=== PATIENT | male | born 1975 | race Hispanic/Latino ===

== ENCOUNTER → 2023-07-10 | Emergency (ER) | payer OTHER ==
[~2023-07-10] MED LIST: ACETAMINOPHEN 500 MG TAB PO PRN; ASPIRIN 81 MG CHEWABLE TABLET ONE; ASPIRIN EC 81 MG TAB PO SCH; ENOXAPARIN 30 MG/0.3 ML SQ ONE; ENOXAPARIN 60 MG/0.6 ML SQ ONE; FAMOTIDINE 20 MG/2 ML VIAL IV ONE; PANTOPRAZOLE 40 MG INJ IVP SCH; SODIUM CHLORIDE 0.9% 10ML INJ IV PRN
--- OUTSIDE RECORDS SUMMARY | 2023-07-10 19:45 | XMS REPORT | Continuity of Care Document ---
Author Name Unknown Address [address] [place], [place] [address]onnect Address [address] [place] [id number] Care Team Providers Care Almond Paste Mixer Name Role Phone Unavailable Unavailable Unavailable
[2023-07-10 20:52] LABS: Absolute Lymphocytes (CBC) 2.4 K/uL (0.7-4.9); Hematocrit 42.4 % (39.6-49.0); Platelets 246 thou/uL (152-406); RBC Red Blood Cell Count 4.93 M/uL (4.33-5.43)
[2023-07-10 20:56] LABS: Protime INR 1.13
--- NOTE | 2023-07-10 20:58 | RAD REPORT ---
EXAM DESCRIPTION: CT - Head Brain Wo Cont - 07/10/2023 8:47 pm CLINICAL HISTORY: HEADACHE COMPARISON: No comparisons TECHNIQUE: All CT scans are performed using dose optimization technique as appropriate and may inclu de automated exposure control or mA/KV adjustment according to patient size. FINDINGS: No intracranial hemorrhage, hydrocephalus or extra-axial fluid collection.No areas of brai n edema or evidence of midline shift. Age advanced cerebral atrophy with prominence of the extra-axia l spaces, slightly asymmetric to the right. The paranasal sinuses and mastoids are clear. The calvarium is intact. IMPRESSION: No acute intracranial abnormality.
--- NOTE | 2023-07-10 20:58 | RAD REPORT ---
EXAM DESCRIPTION: RAD - Chest Single View - 07/10/2023 8:44 pm CLINICAL HISTORY: CHEST PAIN COMPARISON: No comparisons FINDINGS: Lines: None. Lungs: No evidence of edema or pneumonia. Pleural: No significant pleural effusions or pneumothorax. Cardiac: The heart size is within normal limits. Mediastinum: Within normal limits. Bones: No acute fractures. Other: None IMPRESSION: No acute cardiopulmonary disease.
--- NOTE | 2023-07-10 21:08 | EDPHYS ---
Physician Documentation [facility] Name: Delfino Keller Age: 48 yrs Sex: Male : 1975 Arrival Date: 07/10/2023 Time: 19:42 Bed 5 Private MD: ED Physician Tung Mercado HPI: 07/10 21:04 This 48 yrs old Male presents to ER via Ambulatory with complaints of Chest tash Pain. 21:04 The patient or guardian reports chest pain that is located primarily in the substernal tash area, anterior chest wall, left. Onset: 2 day(s) ago. The pain radiates to Associated signs and symptoms: The patient has no apparent associated signs or symptoms. The chest pain is described as causing indigestion, a pressure. Duration: The patient or guardian reports multiple episodes, with no pattern. Modifying factors: The symptoms are alleviated by nothing. the symptoms are aggravated by nothing. Severity of pain: At its worst the pain was moderate in the emergency department the pain has improved moderately. The patient has not experienced similar symptoms in the past. Historical: - Allergies: 19:55 No Known Allergies; jb4 - Home Meds: 19:55 None [Active]; jb4 - PMHx: 19:55 None; jb4 - PSHx: 19:55 None; jb4 - Immunization history:: Adult Immunizations up to date. - Social history:: Smoking status: Patient denies any tobacco usage or history of. - Family history:: not pertinent. ROS: 21:04 Constitutional: Negative for fever, chills, and weight loss, Eyes: Negative for injury, tash pain, redness, and discharge, ENT: Negative for injury, pain, and discharge, Neck: Negative for injury, pain, and swelling, Respiratory: Negative for shortness of breath, cough, wheezing, and pleuritic chest pain, Abdomen/GI: Negative for abdominal pain, nausea, vomiting, diarrhea, and constipation, Back: Negative for injury and pain, : Negative for injury, bleeding, discharge, and swelling, MS/Extremity: Negative for injury and deformity, Skin: Negative for injury, rash, and discoloration, Neuro: Negative for headache, weakness, numbness, tingling, and seizure, Psych: Negative for depression, anxiety, suicide ideation, homicidal ideation, and hallucinations, Allergy/Immunology: Negative for hives, rash, and allergies, Endocrine: Negative for neck swelling, polydipsia, polyuria, polyphagia, and marked weight changes, Hematologic/Lymphatic: Negative for swollen nodes, abnormal bleeding, and unusual bruising, 21:04 Cardiovascular: Positive for chest pain, Exam: 21:04 Constitutional: This is a well developed, well nourished patient who is awake, alert, tash and in no acute distress. Head/Face: Normocephalic, atraumatic. Eyes: Pupils equal round and reactive to light, extra-ocular motions intact. Lids and lashes normal. Conjunctiva and sclera are non-icteric and not injected. Cornea within normal limits. Periorbital areas with no swelling, redness, or edema. ENT: Nares patent. No nasal discharge, no septal abnormalities noted. Tympanic membranes are normal and external auditory canals are clear. Oropharynx with no redness, swelling, or masses, exudates, or evidence of obstruction, uvula midline. Mucous membranes moist. Neck: Trachea midline, no thyromegaly or masses palpated, and no cervical lymphadenopathy. Supple, full range of motion without nuchal rigidity, or vertebral point tenderness. No Meningismus. Chest/axilla: Normal chest wall appearance and motion. Nontender with no deformity. No lesions are appreciated. Cardiovascular: Regular rate and rhythm with a normal S1 and S2. No gallops, murmurs, or rubs. Normal PMI, no JVD. No pulse deficits. Respiratory: Lungs have equal breath sounds bilaterally, clear to auscultation and percussion. No rales, rhonchi or wheezes noted. No increased work of breathing, no retractions or nasal flaring. Abdomen/GI: Soft, non-tender, with normal bowel sounds. No distension or tympany. No guarding or rebound. No evidence of tenderness throughout. Back: No spinal tenderness. No costovertebral tenderness. Full range of motion. Male : Normal genitalia with no discharge or lesions. Skin: Warm, dry with normal turgor. Normal color with no rashes, no lesions, and no evidence of cellulitis. MS/ Extremity: Pulses equal, no cyanosis. Neurovascular intact. Full, normal range of motion. Neuro: Awake and alert, GCS 15, oriented to person, place, time, and situation. Cranial nerves II-XII grossly intact. Motor strength 5/5 in all extremities. Sensory grossly intact. Cerebellar exam normal. Normal gait. Psych: Awake, alert, with orientation to person, place and time. Behavior, mood, and affect are within normal limits. 21:04 ECG was reviewed by the Attending Physician. Vital Signs: 19:53 BP 121 / 65; Pulse 71; Resp 17 S; Temp 98(O); Pulse Ox 99% on R/A; Weight 92.99 kg; jb4 Height 5 ft. 5 in. ; Pain 3/10; 21:01 BP 111 / 89; Pulse 80; Resp 23; Pulse Ox 96% on R/A; Pain 5/10; tm6 22:00 BP 116 / 76; Pulse 68; Resp 20; Pulse Ox 96% ; vc1 19:53 Body Mass Index 34.11 (92.99 kg, 165.1 cm) jb4 19:53 Pain Scale: Adult jb4 21:01 Pain Scale: Adult tm6 MDM: 20:13 Patient medically screened. tash 21:06 Differential diagnosis: abnormal EKG, acute myocardial infarction, acute pericarditis, tash chest wall pain, esophagitis, gastroesophageal reflux disease (GERD), hiatal hernia, pancreatitis, pericarditis, pneumonia, pulmonary embolus, stable angina, thoracic aortic disection, unstable angina. HEART Score: History: Slightly Suspicious (0), ECG: Normal (0), Age: > 45 and < 65 years (1), Risk Factors: 1 or 2 risk factors (1), [+ Family HX] [Obesity] Troponin: < or = 1 x Normal Limit (0), Total Score = 2. The patient was given aspirin in the Emergency Department. ANALIA Risk Score: TOTAL SCORE = 0. Data reviewed: vital signs, nurses notes, lab test result(s), EKG, radiologic studies, plain films. Consideration of Admission/Observation Escalation of care including admission/observation considered. I considered the following discharge prescriptions or medication management in the emergency department Medications were administered in the Emergency Department. See MAR. Test considered but Not performed: Ultrasound no 2 d echo. Care significantly affected by the following chronic conditions: Obesity. Counseling: I had a detailed discussion with the patient and/or guardian regarding the historical points, exam findings, and any diagnostic results supporting the discharge/admit diagnosis, lab results, radiology results, the need to transfer to another facility, for higher level of care, [facility] does not immediately have the required specialist. 07/10 20:21 Order name: Basic Metabolic Panel; Complete Time: 21:18 [facility] 07/10 20:21 Order name: CBC with Diff; Complete Time: 21:02 [facility] 07/10 20:21 Order name: LFT's; Complete Time: 21:18 [facility] 07/10 20:21 Order name: Magnesium; Complete Time: 21:18 [facility] 07/10 20:21 Order name: NT PRO-BNP; Complete Time: 21:18 [facility] 07/10 20:21 Order name: PT-INR; Complete Time: 21:02 [facility] 07/10 20:21 Order name: Troponin HS; Complete Time: 21:18 [facility] 07/10 20:21 Order name: Lipase; Complete Time: 21:18 [facility] 07/10 20:21 Order name: Urinalysis w/ reflexes [facility] 07/10 21:03 Order name: D-Dimer [facility] 07/10 22:10 Order name: Basic Metabolic Panel [facility] 07/10 22:10 Order name: CBC with Automated Diff [facility] 07/10 22:10 Order name: Troponin High Sensitivity [facility] 07/10 20:21 Order name: XRAY Chest (1 view); Complete Time: 21:02 [facility] 07/10 20:30 Order name: CT Head Brain wo Cont; Complete Time: 21:02 [facility] 07/10 20:21 Order name: EKG; Complete Time: 20:23 [facility] 07/10 22:10 Order name: CONS Physician Consult [facility] 07/10 22:10 Order name: EKG Electrocardiogram [facility] 07/10 20:21 Order name: Cardiac monitoring; Complete Time: 20:32 [facility] 07/10 20:21 Order name: EKG - Nurse/Tech; Complete Time: 20:32 [facility] 07/10 20:21 Order name: IV Saline Lock; Complete Time: 20:58 [facility] 07/10 20:21 Order name: Labs collected and sent; Complete Time: 20:58 [facility] 07/10 20:21 Order name: O2 Per Protocol; Complete Time: 20:32 [facility] 07/10 20:21 Order name: O2 Sat Monitoring; Complete Time: 20:32 [facility] EC:04 Rate is 61 beats/min. Rhythm is regular. QRS [place] is Normal. LA interval is normal. QRS tash interval is normal. QT interval is normal. No Q waves. T waves are Normal. No ST changes noted. Clinical impression: Normal ECG and No evidence of ischemia. Interpreted by me. Reviewed by me. Administered Medications: 21:07 Drug: Aspirin PO Chewable Tablet 162 mg PO once Route: PO; jb4 21:07 Drug: Famotidine IVP 20 mg IVP once; dilute with 10 mL 0.9% NaCl; give over 2 minutes jb4 Route: IVP; Site: right antecubital; 21:16 Drug: Enoxaparin Sub-Q 1 mg/kg Sub-Q once Route: Sub-Q; Site: right lower abdomen; jb4 Disposition Summary: 07/10/23 21:19 Hospitalization Ordered Notes: Hospitalization Status: Observation tash Provider: Angus Overton cha Location: Telemetry/MedSurg (observation) tash Condition: Stable(07/10/23 21:19) tash Problem: new(07/10/23 21:19) tash Symptoms: have improved(07/10/23 21:19) tash Bed/Room Type: Standard [facility] Room Assignment: tash Diagnosis - Chest pain, unspecified(07/10/23 21:19) tash Forms: - Medication Reconciliation Form tash - SBAR form tash - Leadership Thank You Letter tash Signatures: Dispatcher [employer] Tung Pearl MD MD cha Bryson, James, RN RN jb4 Corrections: (The following items were deleted from the chart) 21:19 21:08 to va tash tash 21:19 21:08 [facility] tash tash 21:19 21:08 Higher level of care tash tash 21:19 21:08 Stable tash tash 21:19 21:08 new tash tash 21:19 21:08 have improved tash tash 21:19 21:08 Chest pain, unspecified tash tash
--- NOTE | 2023-07-10 21:08 | ER ---
Nurse's Notes [facility] Name: Delfino Keller Age: 48 yrs Sex: Male : 1975 Arrival Date: 07/10/2023 Time: 19:42 Bed 5 Private MD: Diagnosis: Chest pain, unspecified Presentation: 07/10 19:53 Chief complaint: Patient states: Right sided chest pain onset 2 days ago. Pt states jb4 that the pain has traveled to the left side of his chest and is also having a headache. Coronavirus screen: Vaccine status: Patient reports receiving the 2nd dose of the covid vaccine. Client denies travel out of the [place] in the last 14 days. Ebola Screen: Patient denies travel to an Ebola-affected area in the 21 days before illness onset. No symptoms or risks identified at this time. Initial Sepsis Screen: Does the patient meet any 2 criteria? No. Patient's initial sepsis screen is negative. Does the patient have a suspected source of infection? No. Patient's initial sepsis screen is negative. Risk Assessment: Do you want to hurt yourself or someone else? Patient reports no desire to harm self or others. Onset of symptoms was July 10, 2023. 19:53 Method Of Arrival: Ambulatory jb4 19:53 Acuity: ROCIO 2 jb4 Historical: - Allergies: 19:55 No Known Allergies; jb4 - Home Meds: 19:55 None [Active]; jb4 - PMHx: 19:55 None; jb4 - PSHx: 19:55 None; jb4 - Immunization history:: Adult Immunizations up to date. - Social history:: Smoking status: Patient denies any tobacco usage or history of. - Family history:: not pertinent. Screenin:01 [facility] ED Fall Risk Assessment (Adult) History of falling in the last 3 months, tm6 including since admission No falls in past 3 months (0 pts). Abuse screen: Denies threats or abuse. Denies injuries from another. Nutritional screening: No deficits noted. Tuberculosis screening: No symptoms or risk factors identified. Assessment: 21:01 General: Appears in no apparent distress. Behavior is calm, cooperative. Pain: tm6 Complains of pain in chest Pain radiates to left ear, left sabianist and left jaw Pain currently is 5 out of 10 on a pain scale. Quality of pain is described as sharp, Pain began 2-3 days ago. Neuro: Level of Consciousness is awake, alert, obeys commands, Oriented to person, place, time, situation. Cardiovascular: Capillary refill < 3 seconds Patient's skin is warm and dry. Rhythm is sinus rhythm. Respiratory: Airway is patent Respiratory effort is even, unlabored, Respiratory pattern is regular, symmetrical. GI: Abdomen is round non-distended. : No signs and/or symptoms were reported regarding the genitourinary system. EENT: No signs and/or symptoms were reported regarding the EENT system. Derm: No signs and/or symptoms reported regarding the dermatologic system. Musculoskeletal: No signs and/or symptoms reported regarding the musculoskeletal system. 22:36 Reassessment: No changes from previously documented assessment. Patient and/or family vc1 updated on plan of care and expected duration. Pain level reassessed. Patient is alert, oriented x 3, equal unlabored respirations, skin warm/dry/pink. Vital Signs: 19:53 BP 121 / 65; Pulse 71; Resp 17 S; Temp 98(O); Pulse Ox 99% on R/A; Weight 92.99 kg; jb4 Height 5 ft. 5 in. ; Pain 3/10; 21:01 BP 111 / 89; Pulse 80; Resp 23; Pulse Ox 96% on R/A; Pain 5/10; tm6 22:00 BP 116 / 76; Pulse 68; Resp 20; Pulse Ox 96% ; vc1 19:53 Body Mass Index 34.11 (92.99 kg, 165.1 cm) jb4 19:53 Pain Scale: Adult jb4 21:01 Pain Scale: Adult tm6 ED Course: 19:47 Patient arrived in ED. ae5 19:55 Triage completed. jb4 19:55 Arm band placed on Patient placed in an exam room, on a stretcher. jb4 20:13 Stu Maldonado, HARINDER is Primary Nurse. jb4 20:13 Tung Mercado MD is Attending Physician. tash 20:46 XRAY Chest (1 view) In Process Unspecified. EDMS 20:48 CT Head Brain wo Cont In Process Unspecified. EDMS 20:58 Inserted saline lock: 20 gauge in right antecubital area, using aseptic technique. tm6 21:01 Patient has correct armband on for positive identification. Placed in gown. Bed in low tm6 position. Call light in reach. Side rails up X2. Provided Education on: plan of care. Client placed on continuous cardiac and pulse oximetry monitoring. NIBP monitoring applied. in flight technician on. Door closed. Noise minimized. 21:01 No provider procedures requiring assistance completed. Patient maintains SpO2 tm6 saturation greater than 95% on room air. 21:13 called [place] to get authorization to keep patient at facility per Dr. Mercado request. andrew Spoke with Mckenna Stephanie Patient ID#P- [id number]. Authorization # [id number] at 2112. 21:19 Angus Overton is Hospitalizing Provider. tash Administered Medications: 21:07 Drug: Aspirin PO Chewable Tablet 162 mg PO once Route: PO; jb4 21:07 Drug: Famotidine IVP 20 mg IVP once; dilute with 10 mL 0.9% NaCl; give over 2 minutes jb4 Route: IVP; Site: right antecubital; 21:16 Drug: Enoxaparin Sub-Q 1 mg/kg Sub-Q once Route: Sub-Q; Site: right lower abdomen; jb4 Medication: 21:01 VIS not applicable for this client. tm6 Outcome: 21:08 ER care complete, transfer ordered by . tash 21:19 Decision to Hospitalize by Provider. tash 23:21 Patient left the ED. jb4 Signatures: Dispatcher [employer] Tung Pearl MD MD cha Bryson, James RN RN jb4 Gisela Julian RN RN 1 Rick Dolan RN RN tm6 Paula King Vivian vk
[2023-07-10 21:16] LABS: Bilirubin Direct 0.2 mg/dL (0-0.2); Bilirubin Indirect, Calculated 0.3 mg/dL (0.2-0.8); Bilirubin Total 0.5 mg/dL (0.2-1.0); Potassium 3.9 mEq/L (3.5-5.1); Protein, Total 7.1 g/dL (6.4-8.2); Troponin High Sensitivity 8.4 pg/mL (<58.9)
[2023-07-10 21:39] LABS: Specific Gravity 1.029 (1.005-1.030); Urine Bacteria None Seen /HPF (<20); Urine Bilirubin NEGATIVE (Negative); Urine Blood Negative (Negative); Urine Clarity Clear (Clear); Urine Color Yellow (Yellow); Urine Glucose NEGATIVE (Negative); Urine Mucus Slight /HPF (None Seen); Urine Protein NEGATIVE (Negative); Urine RBC None Seen /HPF (None Seen); Urine Urobilinogen Normal (Normal); Urine pH 5.5 (5.0-7.0)
--- NOTE | 2023-07-10 22:18 | P.HP ---
Certification for Inpatient Patient admitted to: Observation With expected LOS: <2 Midnights Patient will require the following post-hospital care: None Practitioner: I am a practitioner with admitting privileges, knowledge of patient current condition, hospital course, and medical plan of care. Services: Services provided to patient in accordance with Admission requirements found in Title 42 Section 412.3 of the Code of Federal Regulations Patient History Date of Service: 07/10/23 Primary Care Provider: MAGUI Reason for admission: Chest pain History of Present Illness: Mr. Keller is a 48yo with no past medical history. Two days ago he felt a "little spot" of pain to right upper chest that moved over toward his esophagus and the up left chest and up to left ear. He describes the pain as pounding, denies nausea, vomiting, shortness of breath, diaphoresis. Denies dizziness. EKG normal, initial trop normal. Vital signs currently 115/79, 74, 100%RA, 18. ANALIA risk score 1 for obesity. Allergies No Known Allergies Allergy (Unverified 09/10/11 06:48) Home medications list reviewed: No (none) - Past Medical/Surgical History Diabetic: No Past Medical History: Patient denies medical history Past Surgical History: Patient denies surgical history Psychosocial/ Personal History: [place], works days, has a Brother. Dad of cancer when Delfino was 10yo, Mom was "born sick" - Family History Family History: Reviewed- Non-Contributory - Social History Smoking Status: Never smoker Alcohol use: No CD- Drugs: No Caffeine use: Yes Place of Residence: Home Review of Systems 10-point ROS is otherwise unremarkable Cardiovascular: As per HPI Physical Examination - Vital Signs Blood Pressure: 115/79 Pulse: 74 Respirations: 18 Pulse Ox (%): 100 - Physical Exam General: Alert, In no apparent distress, Oriented x3, Obese HEENT: Atraumatic, Normocephalic, PERRLA Neck: Supple, 2+ carotid pulse no bruit Respiratory: Clear to auscultation bilaterally, Normal air movement Cardiovascular: No edema, Normal pulses, Regular rate/rhythm Capillary refill: <2 Seconds Gastrointestinal: Normal bowel sounds, Soft and benign Musculoskeletal: No clubbing Integumentary: No rashes Neurological: Normal speech, Normal tone Lymphatics: No axilla or inguinal lymphadenopathy External genitalia: Deferred Rectal: Deferred - Studies Laboratory Data (last 24 hrs) 07/10/23 07/10/23 07/10/23 20:31 20:31 20:31 WBC 8.50 Hgb 15.0 Hct 42.4 Plt Count 246 PT 12.4 INR 1.13 Sodium 136 Potassium 3.9 BUN 23 H Creatinine 1.08 Glucose 91 Magnesium 2.0 Total Bilirubin 0.5 AST 19 ALT 46 Alkaline Phosphatase 69 Lipase 39 Assessment and Plan - Problems (Diagnosis) (1) Chest pain Current Visit: Yes Status: Acute Plan: Aspirin 81mg daily (enteric coated) trend troponins, telemetry Qualifiers: Chest pain type: other chest pain Qualified Code(s): R07.89 - Other chest pain; R07.8 - Other chest pain (2) Over weight Current Visit: Yes Status: Acute Plan: Encourage healthy eating plan, increase green leafy foods, protein, avoid fillers, fatty foods, simple carbs (3) Gastro-esophageal reflux Current Visit: Yes Status: Acute Plan: Protonix 40mg IV q 12 while in observation Pt states he has cut back on spicy foods but states he has had a cough for years. Recommend GERD treatment and possibly endoscopy for direct visualization, testing for H. pylori Discharge Plan: Home Plan to discharge in: 24 Hours - Advance Directives Does patient have a Living Will: No Does patient have a Durable POA for Healthcare: No - Code Status/Comfort Care Code Status Assessed: Yes (Full)
[2023-07-10 22:25] VITALS: BP 115/79
[2023-07-11 03:20] VITALS: TEMP 98; O2SAT 96
--- NOTE | 2023-07-11 04:38 | P.SSS ---
Patient History Date of Service: 07/11/23 Primary Care Provider: [place] Reason for admission: Chest pain History of Present Illness: Mr. Keller is a 48yo with no past medical history. Two days ago he felt a "little spot" of pain to right upper chest that moved over toward his esophagus and the up left chest and up to left ear. He describes the pain as pounding, denies nausea, vomiting, shortness of breath, diaphoresis. Denies dizziness. EKG normal, initial trop normal. Vital signs currently 115/79, 74, 100%RA, 18. ANALIA risk score 1 for obesity. Allergies No Known Allergies Allergy (Unverified 09/10/11 06:48) - Past Medical/Surgical History Diabetic: No Psychosocial/ Personal History: , works days, has a Brother. Dad of cancer when Delfino was 10yo, Mom was "born sick" - Family History Family History: Reviewed- Non-Contributory - Social History Smoking Status: Never smoker Alcohol use: No CD- Drugs: No Caffeine use: Yes Place of Residence: Home Physical Examination - Vital Signs Temperature: 98 F Blood Pressure: 115/79 Pulse: 74 Respirations: 18 Pulse Ox (%): 100 - Studies Laboratory Data (last 24 hrs) 07/11/23 07/11/23 07/10/23 05:00 05:00 20:31 WBC Cancelled Hgb Cancelled Hct Cancelled Plt Count Cancelled PT 12.4 INR 1.13 Sodium Cancelled Potassium Cancelled BUN Cancelled Creatinine Cancelled Glucose Cancelled Magnesium Total Bilirubin AST ALT Alkaline Phosphatase Lipase 07/10/23 07/10/23 20:31 20:31 WBC 8.50 Hgb 15.0 Hct 42.4 Plt Count 246 PT INR Sodium 136 Potassium 3.9 BUN 23 H Creatinine 1.08 Glucose 91 Magnesium 2.0 Total Bilirubin 0.5 AST 19 ALT 46 Alkaline Phosphatase 69 Lipase 39 - Diagnosis (Problem(s)) (1) Chest pain Current Visit: Yes Status: Acute Plan: Aspirin 81mg daily (enteric coated) trend troponins, telemetry Qualifiers: Chest pain type: other chest pain Qualified Code(s): R07.89 - Other chest pain; R07.8 - Other chest pain (2) Over weight Current Visit: Yes Status: Acute Plan: Encourage healthy eating plan, increase green leafy foods, protein, avoid fillers, fatty foods, simple carbs (3) Gastro-esophageal reflux Current Visit: Yes Status: Acute Plan: Protonix 40mg IV q 12 while in observation Pt states he has cut back on spicy foods but states he has had a cough for years. Recommend GERD treatment and possibly endoscopy for direct visualization, testing for H. pylori - Disposition Disposition: AMA-LEFT AGAINST MEDICAL ADVIC Condition: GOOD Followup: NONE,NONE [Primary Care Provider] - Prvt MD As Needed Diet: AHA Activity: Ad jason Physician Review: Patient Assessed, Agree with Above Assessment and Plan Critical Care: No
--- NOTE | 2023-07-11 15:29 | EKG ---
Test Date: 2023-07-10 Test Time: 20:14:17 Rig Site Engineer: MARK MEASUREMENT RESULTS: Intervals: Rate: 61 ID: [id number] QRSD: 82 QT: 398 QTc: 400 [place]: P: 14 ID: [id number] QRS: 20 T: 24 INTERPRETIVE STATEMENTS: Normal sinus rhythm Normal ECG No previous ECG available for comparison Electronically Signed On 07-11-23 15:26:54 REAL ESTATE INTERN by Klaus Rodriguez
== END | disposition left against medical advice (07) ==
LOC: ER 19:42
DX: R07.89 Other chest pain (principal); R51.9 Headache, unspecified; K21.9 Gastro-esophageal reflux disease without esophagitis; R05.9 Cough, unspecified; E66.3 Overweight; Z68.34 Body mass index [BMI] 34.0-34.9, adult
CPT/HCPCS: 93005; 85025; 81001; 80048; 36415; 83735; 85610; 85379; 80076; 84484; 83690; 83880; 70450; 71045; 96372; 96374; 99285; J1650 ×2

== ENCOUNTER 2024-03-13 16:21 | Emergency (ER) | payer OTHER ==
--- OUTSIDE RECORDS SUMMARY | 2024-03-13 16:23 | XMS REPORT | Continuity of Care Document ---
Author Name Unknown Address [address] [place] [address] [facility] thconnect Address [address] [place] [address] Care Team Providers Care Farm Or Ranch Animal Caretaker Name Role Phone [facility] Primary Car e Physician Unavailable NICHOLAS TAFOYA Attending Clinician Unavailable Nicholas Tafoya MD Attending Clinician Nurse, Bakari Endo/Diab Attending Clinician Unavail able Doctor Unassigned, Hyde Attending Clinician U navailable Lab, Bakari - Db Attending Clinician Unavailable Payers Payer Name Policy Type Policy Number Effective Date Expirati on Date Source [facility] [id number] 2023 00:00:00 Problems Condition Name Condition Details Condition Category Status Onset Date Resolution Date Last Treatment Date Treating Clinician Comments Source 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 10-23 00:00: 00 [facility] Refraction error Refraction error Disease Active 10-23 00:00: 00 [facility] Allergies, Adverse Reactions, Alerts Allergy Name Allergy Type Status Severity Reaction(s) Onset Date Inactive Date Treating Clinician Comments Source NO KNOWN ALLERGIE S Drug Class Active [facility] Social History Social Habit Start Date Stop Date Quantity Comments Source History of tobacco use Cigarette Smoker [facility] Gender identity [facility] Alcoholic beverage intake 2023-03-18 00:00:00 2023-03-18 00:00:00 Ex-drinker (finding) [facility] Tobacco use and exposure 2023-03-18 00:00:00 2023-03-18 00:00:00 Smokeless tobacco non-user [facility] Alcohol intake 2023-03-18 00:00:00 2023-03-18 00:00:00 Ex-drinker (finding) [facility] History of Social function 2023-03-18 00:00:00 2023-03-18 00:00:00 [facility] Tobacco Comment 2023-03-18 00:00:00 2023-03-18 00:00:00 Previously social, not current [facility] Alcohol Comment 2023-03-18 00:00:00 2023-03-18 00:00:00 previously social, not current [facility] Sex assigned at 1975 00:00:00 1975 00:00:00 [facility] Smoking Status Start Date Stop Date Source Ex-smoker 2023-03-18 00:00:00 2023-03-18 00:00:00 [facility] Medications Ordered Medication Name Filled Medication Name Start Date Stop Date Current Medication? Ordering Clinician Indication Dosage Frequency Signature (SIG) Comments Components Source testosteron e cypionate 200 mg/mL injection 08-05 00:00: 00 Yes [id number] 200mg 1 mL by Intramuscu lar route every 2 (two) weeks. [facility] Syringe with Needle, Safety 1 mL 23 gauge x 1" Syrg 08-05 00:00: 00 Yes [id number] Use as directed [facility] testosteron e 20.25 mg/1.25 gram (1.62 %) gel pump 04-09 00:00: 00 08-05 00:00 :00 No [id number] 20.25mg Apply 1 Pump to area(s) in the morning. [facility] testosteron e 20.25 mg/1.25 gram (1.62 %) gel pump 03-28 00:00: 00 04-09 00:00 :00 No [id number] 20.25mg Apply 1 Pump to area(s) in the morning. [facility] testosteron e 20.25 mg/1.25 gram (1.62 %) gel pump 03-24 00:00: 00 Yes [id number] 20.25mg Apply 1 Pump to area(s) in the morning. [facility] Vital Signs Vital Name Observation Time Observation Value Comments S ource Systolic blood pressure 2023-08-05 16:36:00 115 mm[Hg] [facility] Diastolic blood pressure 2023-08-05 16:36:00 79 mm[Hg] [facility] Heart rate 2023-08-05 16:36:00 64 /min [facility] Body height 2023-08-05 16:36:00 165.1 cm [facility] Body weight 2023-08-05 16:36:00 94.575 kg [facility] BMI 2023-08-05 16:36:00 34.70 kg/m2 [facility] Systolic blood pressure 2023-03-18 13:39:00 122 mm[Hg] [facility] Diastolic blood pressure 2023-03-18 13:39:00 86 mm[Hg] [facility] Heart rate 2023-03-18 13:39:00 71 /min [facility] Body height 2023-03-18 13:39:00 165.1 cm [facility] Body weight 2023-03-18 13:39:00 91.536 kg [facility] BMI 2023-03-18 13:39:00 33.58 kg/m2 [facility] Oxygen saturation in Arterial blood by Pulse oximetry 2023-03-18 13:39:00 93 /min [facility] Procedures Procedure Date / Time Performed Performing Clinician Source MEDICATION CORRESPONDENCE 2023-03-31 05:01:00 Do ctor Unassigned, Hyde [facility] THYROID STIMULATING HORMONE 2023-03-18 14:55:00 Nicholas Tafoya [facility] Encounters Start Date/Time End Date/Time Encounter Type Admission Type Attending Clinicians Care Facility Care Department Encounter ID Source 2024-01-27 16:00:00 2024-01-27 16:00:00 Outpatient [facility] [id number] [facility] 2024-01-20 08:30:00 2024-01-20 08:30:00 Outpatient [facility] [id number] [facility] 2023-12-02 00:00:00 2023-12-02 15:50:25 Telephone [facility] 1.2.840.114 350.1.13.10 4.2.7.2.686 [id number] [facility] 2023-10-16 09:00:00 2023-10-16 09:00:00 Outpatient R [facility] [id number] [facility] 2023-08-28 14:00:00 2023-08-28 17:08:42 Outpatient [facility] [id number] [facility] 2023-08-28 14:00:00 2023-08-28 14:30:00 Nurse Visit Nurse, Ang Endo/Diab [facility] 1.2.840.114 350.1.13.10 4.2.7.2.686 [id number] [facility] 2023-08-05 11:00:00 2023-08-05 11:50:12 Outpatient [facility] [id number] [facility] 2023-08-05 11:00:00 2023-08-05 11:50:12 Office Visit [facility] 1.2.840.114 350.1.13.10 4.2.7.2.686 [id number] [facility] 2023-04-08 00:00:00 2023-04-08 00:00:00 Telephone [facility] 1.2.840.114 350.1.13.10 4.2.7.2.686 [id number] [facility] 2023-04-07 00:00:00 2023-04-07 00:00:00 [facility] 1.2.840.114 350.1.13.10 4.2.7.2.686 [id number] [facility] 2023-03-31 00:00:00 2023-03-31 00:00:00 Orders Only Doctor Unassigned, Hyde [facility] 1.2.840.114 350.1.13.10 4.2.7.2.686 [id number] [facility] 2023-03-27 00:00:00 2023-03-27 00:00:00 Telephone [facility] 1.2840.114 350.1.13.10 4.2.7.2.686 [id number] [facility] 2023-03-24 00:00:00 2023-03-24 00:00:00 Telephone [facility] 1.2840.114 350.1.13.10 4.2.7.2.686 [id number] [facility] 2023-03-18 11:30:00 2023-03-18 11:30:00 Care Process Manager Visit Lab, Ang - Db [facility] 1.2.840.114 350.1.13.10 4.2.7.2.686 [id number] [facility] 2023-03-18 08:30:00 2023-03-18 09:30:52 Outpatient [facility] [id number] [facility] 2023-03-18 08:30:00 2023-03-18 09:30:52 Office Visit Nicholas Tafoya [facility] 1.2.840.114 350.1.13.10 4.2.7.2.686 [id number] [facility] Notes Date/Time Note Provider Source 2023-12-02 15:48:07 RFS form from [place] and [facility] note faxed to [phone] Heladio Farias RN [facility] 2023-03-25 11:36:43 Formatting of this n ote might be different from the original. Patient called and informed of providers message. Patient verbalized understanding and denies any further questions. Deborah Smiley RN [facility] 2023-03-25 11:27:13 Formatting of this n ote might be different from the original. Pt returning missed call over lab results. Please advise. Gabino Dennis [facility] 2023-03-25 10:46:09 Formatting of this n ote might be different from the original. Patient called. No answer. Left voicemail. [facility] 2023-03-24 19:05:22 Formatting of this n ote might be different from the original. Please update blood work result with patient. His testosterone level was borderline low, will start androgel 1 pump daily as we discussed during visit RX was sent to his pharmacy Other hormone test was normal [facility] 2023-03-18 11:30:00 Formatting of this n ote is different from the original. Images from the original note were not included. Venipuncture collection performed by clean technique on the left anticubitus. Total of 1 attempts were made. Slight pressure and a bandage/dressing were applied to the site(s). The patient experienced no complications. The following specimens were processed according to instructions and sent to [facility] laboratories per lab order on 03/18/2023 : LT BLUE SST 4 RED LAV 1 PPT DK GREEN (LiHep) DK GREEN (SodH) CERON DK BLUE (K2) DK BLUE (S) ACD Blood Culture NIPT/NTD [facility]
[2024-03-13] MEDS ORDERED: IBUPROFEN 200 MG TAB PO ONE (16:38)
[2024-03-13 17:52] LABS: SARS-CoV-2 Antigen CONTROL BLUE LINE VIS/BG OK; SARS-CoV-2 Antigen Rapid Res Negative (Negative)
--- NOTE | 2024-03-13 18:03 | ER ---
Nurse's Notes [facility] Name: Delfino Keller Age: 48 yrs Sex: Male : 1975 Arrival Date: 03/13/2024 Time: 16:21 Bed DX3 Private MD: Diagnosis: Acute upper respiratory infection, unspecified Presentation: 03/13 16:37 Chief complaint: Patient states: he has been having chills, body aches, and nasal ap3 congestion that started this morning. patient currently rates his pain as a 6/10 on the pain scale. Coronavirus screen: Client presents with at least one sign or symptom that may indicate coronavirus-19. Ebola Screen: No symptoms or risks identified at this time. Initial Sepsis Screen: Does the patient meet any 2 criteria? HR > 90 bpm. Does the patient have a suspected source of infection? No. Patient's initial sepsis screen is negative. Risk Assessment: Do you want to hurt yourself or someone else? Patient reports no desire to harm self or others. Onset of symptoms was March 13, 2024. 16:37 Method Of Arrival: Ambulatory ap3 16:37 Acuity: ROCIO 3 ap3 Triage Assessment: 16:38 General: Appears ill, Behavior is calm, cooperative, appropriate for age, agitated, ap3 Reports chills for fever for feeling ill for fatigue for. Pain: Complains of pain in generalized body aches. Neuro: Level of Consciousness is awake, alert, obeys commands, Oriented to person, place, time, situation, Appropriate for age. Cardiovascular: Patient's skin is warm and dry. Respiratory: Airway is patent Respiratory effort is even, unlabored, Respiratory pattern is regular, symmetrical. Historical: - Allergies: 16:38 No Known Allergies; ap3 - Home Meds: 16:38 None [Active]; ap3 - PMHx: 16:38 None; ap3 - Immunization history:: Client reports receiving the 2nd dose of the Covid vaccine. - Infectious Disease History:: Denies. - Social history:: Smoking status: Patient denies any tobacco usage or history of. Screenin:39 [facility] ED Fall Risk Assessment (Adult) History of falling in the last 3 months, ap3 including since admission No falls in past 3 months (0 pts) Confusion or Disorientation No (0 pts) Intoxicated or Sedated No (0 pts) Impaired Gait No (0 pts) Mobility Assist Device Used No (0 pt) Altered Elimination No (0 pt) Score/Fall Risk Level 0 - 2 = Low Risk Oriented to surroundings, Maintained a safe environment, Educated pt \T\ family on fall prevention, incl call for assistance when getting out of bed, Assessed \T\ reinforced patient's understanding of fall precautions, Hourly rounding (assess needs \T\ fall precautionary measures) done, Used ambulatory aids as needed (educated on \T\ assisted with), Used gait belt as appropriate. Abuse screen: Denies threats or abuse. Nutritional screening: No deficits noted. Tuberculosis screening: No symptoms or risk factors identified. Assessment: 18:17 Reassessment: Patient appears in no apparent distress at this time. Patient and/or hb family updated on plan of care and expected duration. Pain level reassessed. Patient is alert, oriented x 3, equal unlabored respirations, skin warm/dry/pink. Vital Signs: 16:37 BP 113 / 77; Pulse 122; Resp 17; Temp 100.4; Pulse Ox 96% ; Weight 91.63 kg; Height 5 ap3 ft. 5 in. ; Pain 6/10; 18:07 BP 105 / 65; Pulse 106; Resp 20; Temp 97.6; Pulse Ox 96% ; kb 18:17 BP 118 / 72; Pulse 88; Resp 16; Temp 97.9; Pulse Ox 100% on R/A; hb 16:37 Body Mass Index 33.61 (91.63 kg, 165.1 cm) ap3 16:37 Pain Scale: Adult ap3 ED Course: 16:23 Patient arrived in ED. im 16:24 Radha Loya FNP-C [facility] kb 16:24 Elier Carter MD is Attending Physician. kb 16:37 Emmanuelle Solitario RN is Primary Nurse. ap3 16:38 Triage completed. ap3 16:39 Arm band placed on right wrist. ap3 16:43 SARS-COV-2 Antigen Rapid Sent. ap3 16:43 Flu Sent. ap3 18:17 Patient has correct armband on for positive identification. Provided Education on: hb medications, follow up. 18:17 No provider procedures requiring assistance completed. Patient did not have IV access hb during this emergency room visit. Administered Medications: 16:43 Drug: Ibuprofen PO 600 mg PO once Route: PO; ap3 Medication: 18:17 VIS not applicable for this client. hb Outcome: 18:03 Discharge ordered by MD. mcpherson 18:17 Discharged to home hb 18:17 Condition: stable 18:17 Discharge instructions given to patient, Instructed on discharge instructions, follow up and referral plans. medication usage, Demonstrated understanding of instructions, follow-up care, medications, 18:18 Patient left the ED. hb Signatures: Radha Loya, SOLE STITCHER HAND-C SOLE STITCHER HAND-Emma Arana, RN RN Emmanuelle Solitario RN RN ap3 Meagan Cuevas
--- NOTE | 2024-03-13 18:03 | EDPHYS ---
Physician Documentation [facility] Name: Delfino Keller Age: 48 yrs Sex: Male : 1975 Arrival Date: 03/13/2024 Time: 16:21 Bed DX3 Private MD: ED Physician Elier Carter HPI: 03/13 16:37 This 48 yrs old Male presents to ER via Unassigned with complaints of Flu kb Symptoms. 16:37 Pt is a 48 year old male who presents for cough, congestion, rhinorrhea, headache, kb bodyaches, chills that started this morning. Denies n/v/d. No aggravating or alleviating factors. Historical: - Allergies: 16:38 No Known Allergies; ap3 - Home Meds: 16:38 None [Active]; ap3 - PMHx: 16:38 None; ap3 - Immunization history:: Client reports receiving the 2nd dose of the Covid vaccine. - Infectious Disease History:: Denies. - Social history:: Smoking status: Patient denies any tobacco usage or history of. ROS: 16:37 Constitutional: As per HPI kb Exam: 16:37 Constitutional: This is a well developed, well nourished patient who is awake, alert, kb and in no acute distress. Head/Face: Normocephalic, atraumatic. ENT: Moist Mucous membranes Cardiovascular: Regular rate Respiratory: Respirations even and unlabored. No increased work of breathing. Talking in full sentences Abdomen/GI: Soft, non-tender. No distention Skin: Warm, dry with normal turgor. Normal color. MS/ Extremity: Pulses equal, no cyanosis. Neurovascular intact. Full, normal range of motion. Neuro: Awake and alert, GCS 15, oriented to person, place, time, and situation. Moves all extremities. Normal gait. Vital Signs: 16:37 BP 113 / 77; Pulse 122; Resp 17; Temp 100.4; Pulse Ox 96% ; Weight 91.63 kg; Height 5 ap3 ft. 5 in. ; Pain 6/10; 18:07 BP 105 / 65; Pulse 106; Resp 20; Temp 97.6; Pulse Ox 96% ; kb 18:17 BP 118 / 72; Pulse 88; Resp 16; Temp 97.9; Pulse Ox 100% on R/A; hb 16:37 Body Mass Index 33.61 (91.63 kg, 165.1 cm) ap3 16:37 Pain Scale: Adult ap3 MDM: 16:24 Patient medically screened. kb 16:37 Differential diagnosis: flu, covid, uri. Data reviewed: vital signs, nurses notes. kb 18:01 I considered the following discharge prescriptions or medication management in the emergency department I discussed and recommended Over The Counter medications, Antibiotics: At this time antibiotics are not recommended, Antivirals: At this time, antivirals are not recommended. Test considered but Not performed: Labs: cbc, cmp considered but pt is nontoxic in appearance, tolerating po intkae. X-ray: chest x-ray considered but lungs clear bilaterally, resp even and unlabored. Counseling: I had a detailed discussion with the patient and/or guardian regarding the historical points, exam findings, and any diagnostic results supporting the discharge/admit diagnosis, lab results, the need for outpatient follow up, a family practitioner, to return to the emergency department if symptoms worsen or persist or if there are any questions or concerns that arise at home. 03/13 16:36 Order name: Flu; Complete Time: 18:00 ap3 03/13 16:36 Order name: SARS-COV-2 Antigen Rapid; Complete Time: 18:00 ap3 03/13 17:47 Order name: Vital Signs; Complete Time: 18:14 kb Administered Medications: 16:43 Drug: Ibuprofen PO 600 mg PO once Route: PO; ap3 Disposition: 19:33 Co-signature as Attending Physician, Elier Carter MD I reviewed the patient's care rt provided by the Advanced Practice Provider and agree with the diagnosis and treatment plan. Disposition Summary: 03/13/24 18:03 Discharge Ordered Notes: Location: Home Condition: Stable kb Diagnosis - Acute upper respiratory infection, unspecified kb Followup: kb - With: Emergency Department - When: As needed - Reason: Worsening of condition Followup: kb - With: Private Physician - When: 2 - 3 days - Reason: Recheck today's complaints, Continuance of care, Re-evaluation by your physician Discharge Instructions: - Discharge Summary Sheet kb - Upper Respiratory Infection, Adult, [id number] kb - Viral Respiratory Infection, Raij-Fl-Bumn kb Forms: - Medication Reconciliation Form kb - Antibiotic Education kb - Prescription Opioid Use kb - Patient Portal Instructions kb - Leadership Thank You Letter kb - Work release form hb Signatures: Dispatcher [employer] EDMS Rdaha Loya FNP-C FNP-Ckb Prokisch, Amanda, RN RN ap3 Elier Carter MD MD rt Corrections: (The following items were deleted from the chart) 16:36 16:36 Influenza Screen (A \T\ B)+BA.LAB.BRZ ordered. EDMS EDMS 16:36 16:36 SARS-COV-2 Antigen Rapid+I.LAB.BRZ ordered. EDMS EDMS
[2024-03-13 18:45] VITALS: BP 118/72; TEMP 97.9; O2SAT 100
== END 2024-03-13 18:18 | disposition home or self-care (01) ==
LOC: ER 16:21
DX: J06.9 Acute upper respiratory infection, unspecified (principal); Z11.52 Encounter for screening for COVID-19
CPT/HCPCS: 36415; 87804; 87811; 99283

== ENCOUNTER 2024-04-15 01:51 | Emergency (ER) | payer OTHER ==
--- OUTSIDE RECORDS SUMMARY | 2024-04-15 01:54 | XMS REPORT | Continuity of Care Document ---
Author Name Unknown Address [address] [place] [address] [facility] thconnect Address [address] [place] [address] Care Team Providers Care Cash Management Coordinator Name Role Phone [facility] Primary Car e Physician Unavailable DELROY TAFOYA Attending Clinician Unavailable Delroy Tafoya MD Attending Clinician Nurse, Bakari Endo/Diab Attending Clinician Unavail able Doctor Unassigned, Nedrow Attending Clinician U navailable Lab, Bakari - Db Attending Clinician Unavailable Payers Payer Name Policy Type Policy Number Effective Date Expirati on Date Source [facility] [id number] 2023 00:00:00 Problems Condition Name Condition Details Condition Category Status Onset Date Resolution Date Last Treatment Date Treating Clinician Comments Source 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 10-23 00:00: 00 [facility] Refraction error Refraction error Disease Active 10-23 00:00: 00 [facility] Allergies, Adverse Reactions, Alerts Allergy Name Allergy Type Status Severity Reaction(s) Onset Date Inactive Date Treating Clinician Comments Source NO KNOWN ALLERGIE S Drug Class Active [facility] Social History Social Habit Start Date Stop Date Quantity Comments Source History of tobacco use Cigarette Smoker [facility] Alcoholic beverage intake 2023-03-18 00:00:00 2023-03-18 00:00:00 Ex-drinker (finding) [facility] Tobacco use and exposure 2023-03-18 00:00:00 2023-03-18 00:00:00 Smokeless tobacco non-user [facility] Alcohol intake 2023-03-18 00:00:00 2023-03-18 00:00:00 Ex-drinker (finding) [facility] History of Social function 2023-03-18 00:00:00 2023-03-18 00:00:00 [facility] Tobacco Comment 2023-03-18 00:00:00 2023-03-18 00:00:00 Previously social, not current [facility] Alcohol Comment 2023-03-18 00:00:00 2023-03-18 00:00:00 previously social, not current [facility] Sex assigned at 1975 00:00:00 1975 00:00:00 [facility] Smoking Status Start Date Stop Date Source Ex-smoker 2023-03-18 00:00:00 2023-03-18 [facility] Medications Ordered Medication Name Filled Medication Name Start Date Stop Date Current Medication? Ordering Clinician Indication Dosage Frequency Signature (SIG) Comments Components Source testosteron e cypionate 200 mg/mL injection 08-05 00:00: 00 Yes [id number] 200mg 1 mL by Intramuscu lar route every 2 (two) weeks. [facility] Syringe with Needle, Safety 1 mL 23 gauge x 1" Syrg 08-05 00:00: 00 Yes [id number] Use as directed [facility] testosteron e 20.25 mg/1.25 gram (1.62 %) gel pump 04-09 00:00: 00 08-05 00:00 :00 No [id number] 20.25mg Apply 1 Pump to area(s) in the morning. [facility] testosteron e 20.25 mg/1.25 gram (1.62 %) gel pump 03-28 00:00: 00 04-09 00:00 :00 No [id number] 20.25mg Apply 1 Pump to area(s) in the morning. [facility] testosteron e 20.25 mg/1.25 gram (1.62 %) gel pump 03-24 00:00: 00 Yes [id number] 20.25mg Apply 1 Pump to area(s) in the morning. [facility] Vital Signs Vital Name Observation Time Observation Value Comments S ource Systolic blood pressure 2023-08-05 16:36:00 115 mm[Hg] [facility] Diastolic blood pressure 2023-08-05 16:36:00 79 mm[Hg] [facility] Heart rate 2023-08-05 16:36:00 64 /min [facility] Body height 2023-08-05 16:36:00 165.1 cm [facility] Body weight 2023-08-05 16:36:00 94.575 kg [facility] BMI 2023-08-05 16:36:00 34.70 kg/m2 [facility] Systolic blood pressure 2023-03-18 13:39:00 122 mm[Hg] [facility] Diastolic blood pressure 2023-03-18 13:39:00 86 mm[Hg] [facility] Heart rate 2023-03-18 13:39:00 71 /min [facility] Body height 2023-03-18 13:39:00 165.1 cm [facility] Body weight 2023-03-18 13:39:00 91.536 kg [facility] BMI 2023-03-18 13:39:00 33.58 kg/m2 [facility] Oxygen saturation in Arterial blood by Pulse oximetry 2023-03-18 13:39:00 93 /min [facility] Procedures Procedure Date / Time Performed Performing Clinician Source MEDICATION CORRESPONDENCE 2023-03-31 05:01:00 Do ctor Unassigned, Nedrow [facility] THYROID STIMULATING HORMONE 2023-03-18 14:55:00 Delroy Tafoya [facility] Encounters Start Date/Time End Date/Time Encounter Type Admission Type Attending Clinicians Care Facility Care Department Encounter ID Source 2024-01-27 16:00:00 2024-01-27 16:00:00 Outpatient [facility] [id number] [facility] 2024-01-20 08:30:00 2024-01-20 08:30:00 Outpatient R [facility] [id number] [facility] 2023-12-02 00:00:00 2023-12-02 15:50:25 Telephone Whitney [facility] [id number] 350.1.13.10 4.2.7.2.686 [id number] [facility] 2023-10-16 09:00:00 2023-10-16 09:00:00 Outpatient R [facility] [id number] [facility] 2023-08-28 14:00:00 2023-08-28 17:08:42 Outpatient R [facility] [id number] [facility] 2023-08-28 14:00:00 2023-08-28 14:30:00 Nurse Visit Nurse, Ang Endo/Diab Tafoya [facility] [place]?[facility] 1.2.840.114 350.1.13.10 4.2.7.2.686 [id number] [facility] 2023-08-05 11:00:00 2023-08-05 11:50:12 Outpatient R TAFOYA [facility] [id number] [facility] 2023-08-05 11:00:00 2023-08-05 11:50:12 Office Visit Whitney [facility] 1.2.840.114 350.1.13.10 4.2.7.2.686 [id number] [facility] 2023-04-08 00:00:00 2023-04-08 00:00:00 Telephone Whitney [facility] NEENA?[facility] 1.2.840.114 350.1.13.10 4.2.7.2.686 [id number] [facility] 2023-04-07 00:00:00 2023-04-07 00:00:00 Telephone Whitney [facility] NEENA?[facility] 1.2.840.114 350.1.13.10 4.2.7.2.686 [id number] [facility] 2023-03-31 00:00:00 2023-03-31 00:00:00 Orders Only Doctor Unassigned, Nedrow [facility] 1.2.840.114 350.1.13.10 4.2.7.2.686 [id number] [facility] 2023-03-27 00:00:00 2023-03-27 00:00:00 Telephone Whitney [facility] NEENA?[facility] 1.2840.114 350.1.13.10 4.2.7.2.686 [id number] [facility] 2023-03-24 00:00:00 2023-03-24 00:00:00 Telephone Whitney [facility] NEENA?[facility] 1.2840.114 350.1.13.10 4.2.7.2.686 [id number] [facility] 2023-03-18 11:30:00 2023-03-18 11:30:00 Mar[facility] [employer] Helper [facility] 1.2.840.114 350.1.13.10 4.2.7.2.686 [id number] [facility] 2023-03-18 08:30:00 2023-03-18 09:30:52 Outpatient R CAPO TAFOYAONG [facility] [id number] [facility] 2023-03-18 08:30:00 2023-03-18 09:30:52 Office Visit TafoyaDelroy [facility] 1.2.840.114 350.1.13.10 4.2.7.2.686 [id number] [facility] Notes Date/Time Note Provider Source 2023-12-02 15:48:07 RFS form from [place] and [facility] note faxed to [phone] [facility] 2023-03-25 11:36:43 Formatting of this n ote might be different from the original. Patient called and informed of providers message. Patient verbalized understanding and denies any further questions. Deborah Smiley RN [facility] 2023-03-25 11:27:13 Formatting of this n ote might be different from the original. Pt returning missed call over lab results. Please advise. Gabino Dennis [facility] 2023-03-25 10:46:09 Formatting of this n ote might be different from the original. Patient called. No answer. Left voicemail. [facility] 2023-03-24 19:05:22 Formatting of this n ote might be different from the original. Please update blood work result with patient. His testosterone level was borderline low, will start androgel 1 pump daily as we discussed during visit RX was sent to his pharmacy Other hormone test was normal [facility] 2023-03-18 11:30:00 Formatting of this n ote is different from the original. Images from the original note were not included. Venipuncture collection performed by clean technique on the left anticubitus. Total of 1 attempts were made. Slight pressure and a bandage/dressing were applied to the site(s). The patient experienced no complications. The following specimens were processed according to instructions and sent to [facility] laboratories per lab order on 03/18/2023 : LT BLUE SST 4 RED LAV 1 PPT DK GREEN (LiHep) DK GREEN (SodH) CERON DK BLUE (K2) DK BLUE (S) ACD Blood Culture NIPT/NTD [facility]
[2024-04-15] MEDS ORDERED: KETOROLAC 30 MG/ML INJ ONE (02:20)
[2024-04-15 03:15] LABS: Specific Gravity 1.023 (1.005-1.030); Sqamous Epithelial None Seen /HPF (None Seen); Urine Bacteria None Seen /HPF (<20); Urine Bilirubin NEGATIVE (Negative); Urine Blood Negative (Negative); Urine Clarity Clear (Clear); Urine Color Light-Yellow (Yellow); Urine Culture Reflex Order NOT NEEDED; Urine Glucose NEGATIVE (Negative); Urine Ketones NEGATIVE (Negative); Urine Microscopic Reflex YN ORDER UMIC; Urine Mucus Slight /HPF (None Seen); Urine Nitrite NEGATIVE (Negative); Urine Protein NEGATIVE (Negative); Urine RBC <5 /HPF (None Seen); Urine Urobilinogen Normal (Normal); Urine WBC <5 /HPF (<5)
[2024-04-15 03:26] LABS: Absolute Eosinophils 0.2 K/uL (0-0.5); MCV 85.8 fL (80-100); Red Cell Distribution Width 13.6 % (12.1-15.2)
[2024-04-15 03:28] LABS: Absolute Monocytes 0.8 K/uL (0.1-1.3); Absolute Neutrophil 6.6 K/uL (1.8-8.0); Basophils % 0.5 % (0-1.3); Hemoglobin 15.1 g/dL (13.6-17.9); Lymphocytes % 20.8 % (15.3-44.8); MPV 6.9 fL (7.6-11.3); Monocytes % 8.4 % (3.3-12.3); Neutrophils % 68.3 % (41.7-73.7); Nucleated Red Blood Cells % 0.1 % (0-0); Platelets 244 thou/uL (152-406); RBC Red Blood Cell Count 5.01 M/uL (4.33-5.43)
[2024-04-15 03:29] LABS: Albumin 4.3 g/dL (3.4-5.0); Albumin/Globulin Ratio 1.2 (1.1-1.8); Anion Gap 7.1 mEq/L (5.0-15.0); Bilirubin Total 0.5 mg/dL (0.2-1.0); Globulin 3.6 g/dL (2.3-3.5); Potassium 4.1 mEq/L (3.5-5.1); Protein, Total 7.9 g/dL (6.4-8.2)
--- NOTE | 2024-04-15 04:08 | ER ---
Nurse's Notes [facility] Name: Delfino Keller Age: 48 yrs Sex: Male : 1975 Arrival Date: 04/15/2024 Time: 01:51 Bed 6 Private MD: Diagnosis: Abdominal pain Presentation: 04/15 02:11 Chief complaint: Patient states: left flank pain that started this morning. Coronavirus cp4 screen: Client denies travel out of the [place] in the last 14 days. At this time, the client does not indicate any symptoms associated with coronavirus-19. Ebola Screen: Patient negative for fever greater than or equal to 101.5 degrees Fahrenheit, and additional compatible Ebola Virus Disease symptoms Patient denies exposure to infectious person. Patient denies travel to an Ebola-affected area in the 21 days before illness onset. No symptoms or risks identified at this time. Initial Sepsis Screen: Does the patient meet any 2 criteria? No. Patient's initial sepsis screen is negative. Does the patient have a suspected source of infection? No. Patient's initial sepsis screen is negative. Risk Assessment: Do you want to hurt yourself or someone else? Patient reports no desire to harm self or others. Onset of symptoms was April 14, 2024. 02:11 Method Of Arrival: Ambulatory cp4 02:11 Acuity: ROCIO 3 cp4 Triage Assessment: 02:12 General: Appears in no apparent distress. Behavior is calm, cooperative, appropriate cp4 for age. Pain: Complains of pain in left flank Pain does not radiate. Pain currently is 6 out of 10 on a pain scale. EENT: No signs and/or symptoms were reported regarding the EENT system. Neuro: Level of Consciousness is awake, alert, obeys commands, Oriented to person, place, time, situation. Cardiovascular: Patient's skin is warm and dry. Respiratory: Airway is patent Respiratory effort is even, unlabored. GI: Abdomen is round non-distended, Bowel sounds present X 4 quads. : No signs and/or symptoms were reported regarding the genitourinary system. Derm: No signs and/or symptoms reported regarding the dermatologic system. Musculoskeletal: No signs and/or symptoms reported regarding the musculoskeletal system. Historical: - Allergies: 02:12 No Known Allergies; cp4 - Immunization history:: Adult Immunizations up to date. - Infectious Disease History:: Denies. - Social history:: Smoking status: Patient denies any tobacco usage or history of. Screenin:14 [facility] ED Fall Risk Assessment (Adult) History of falling in the last 3 months, cp4 including since admission No falls in past 3 months (0 pts) Confusion or Disorientation No (0 pts) Intoxicated or Sedated No (0 pts) Impaired Gait No (0 pts) Mobility Assist Device Used No (0 pt) Altered Elimination No (0 pt) Score/Fall Risk Level 0 - 2 = Low Risk Oriented to surroundings, Maintained a safe environment, Assessed \T\ reinforced patient's understanding of fall precautions, Hourly rounding (assess needs \T\ fall precautionary measures) done. Abuse screen: Denies threats or abuse. Nutritional screening: No deficits noted. Tuberculosis screening: No symptoms or risk factors identified. Assessment: 02:14 Reassessment: No changes from previously documented assessment. GI: Abd is soft and non cp4 tender X 4 quads. 03:15 Reassessment: Patient appears in no apparent distress at this time. Patient and/or kj2 family updated on plan of care and expected duration. Pain level reassessed. Patient is alert, oriented x 3, equal unlabored respirations, skin warm/dry/pink. 04:18 Reassessment: Patient appears in no apparent distress at this time. Patient and/or kj2 family updated on plan of care and expected duration. Pain level reassessed. Patient is alert, oriented x 3, equal unlabored respirations, skin warm/dry/pink. Vital Signs: 02:00 BP 142 / 88; Pulse 80; Resp 20; Temp 98.1; Pulse Ox 100% ; kj2 02:11 BP 129 / 90; Pulse 90; Resp 18; Temp 98.8; Pulse Ox 96% ; Pain 6/10; cp4 03:15 BP 134 / 86; Pulse 80; Resp 16; Pulse Ox 100% on R/A; kj2 04:17 BP 130 / 92; Pulse 82; Resp 18; Temp 98; Pulse Ox 100% on R/A; kj2 02:11 Pain Scale: Adult cp4 ED Course: 01:57 Patient arrived in ED. gm2 02:10 Krista Goodrich MD is Attending Physician. sp3 02:11 Xochilt Garza is Primary Nurse. cp4 02:12 Triage completed. cp4 02:12 Arm band placed on right wrist. Patient placed in waiting room. cp4 02:14 Bed in low position. Call light in reach. Side rails up X 1. Provided Education on: cp4 abdominal pain. 02:14 No provider procedures requiring assistance completed. cp4 02:42 CT Abd/Pelvis - Without Contrast In Process Unspecified. EDMS 03:08 Missed attempt(s): 20 gauge in left antecubital area. kj2 03:14 Inserted saline lock: 20 gauge in right antecubital area, using aseptic technique. cp4 Blood collected. Flushed with 10 mL NS. 04:22 IV discontinued, intact, bleeding controlled, No redness/swelling at site. Pressure kj2 dressing applied. Administered Medications: 03:14 Drug: TORadol - Ketorolac IVP 15 mg IVP once Route: IVP; Site: right antecubital; cp4 04:21 Follow up: Response: No adverse reaction; Pain is decreased kj2 Medication: 02:14 VIS not applicable for this client. cp4 Outcome: 04:07 Discharge ordered by . sp3 04:22 Discharged to home ambulatory, kj2 04:22 Condition: stable 04:22 Discharge instructions given to patient, Instructed on discharge instructions, Demonstrated understanding of instructions, follow-up care, 04:22 Patient left the ED. kj2 Signatures: Dispatcher [employer] Krista White MD MD sp3 Xochilt Garza cp4 Irma Flower 2 Sujey Delgado, RN RN kj2
--- NOTE | 2024-04-15 04:08 | EDPHYS ---
Physician Documentation [facility] Name: Delfino Keller Age: 48 yrs Sex: Male : 1975 Arrival Date: 04/15/2024 Time: 01:51 Bed 6 Private MD: ED Physician Krista Goodrich HPI: 04/15 02:14 This 48 yrs old Male presents to ER via Ambulatory with complaints of sp3 Abdominal Pain. 02:14 48-year-old male with history of cholecystectomy no other chronic problems now presents sp3 to the ED with left-sided abdominal pain radiating around to the left flank. Symptoms started approximately 4 hours ago while at work here in the hospital. Patient is a manager security and safety here. He denies any other symptoms including fever, facial pain, chest pain, shortness of breath, upper back pain, right-sided abdominal pain, syncope, near syncope, hematuria, urinary frequency, dysuria, rash, or any other signs or symptoms on ROS this time.. Historical: - Allergies: 02:12 No Known Allergies; cp4 - Immunization history:: Adult Immunizations up to date. - Infectious Disease History:: Denies. - Social history:: Smoking status: Patient denies any tobacco usage or history of. ROS: 02:17 Constitutional: Negative for fever, chills, and weight loss, Eyes: Negative for injury, sp3 pain, redness, and discharge, ENT: Negative for injury, pain, and discharge, Neck: Negative for injury, pain, and swelling, Cardiovascular: Negative for chest pain, palpitations, and edema, Respiratory: Negative for shortness of breath, cough, wheezing, and pleuritic chest pain, MS/Extremity: Negative for injury and deformity, Skin: Negative for injury, rash, and discoloration, Neuro: Negative for headache, weakness, numbness, tingling, and seizure, 02:17 All other systems are negative, Exam: 02:17 Constitutional: This is a well developed, well nourished patient who is awake, alert, sp3 and in no acute distress. Head/Face: Normocephalic, atraumatic. Eyes: Pupils equal round and reactive to light, extra-ocular motions intact. Lids and lashes normal. Conjunctiva and sclera are non-icteric and not injected. Cornea within normal limits. Periorbital areas with no swelling, redness, or edema. Neck: Trachea midline, no thyromegaly or masses palpated, and no cervical lymphadenopathy. Supple, full range of motion without nuchal rigidity, or vertebral point tenderness. No Meningismus. Chest/axilla: Normal chest wall appearance and motion. Nontender with no deformity. No lesions are appreciated. Cardiovascular: Regular rate and rhythm with a normal S1 and S2. No gallops, murmurs, or rubs. Normal PMI, no JVD. No pulse deficits. Respiratory: Lungs have equal breath sounds bilaterally, clear to auscultation and percussion. No rales, rhonchi or wheezes noted. No increased work of breathing, no retractions or nasal flaring. Skin: Warm, dry with normal turgor. Normal color with no rashes, no lesions, and no evidence of cellulitis. MS/ Extremity: Pulses equal, no cyanosis. Neurovascular intact. Full, normal range of motion. Neuro: Awake and alert, GCS 15, oriented to person, place, time, and situation. Cranial nerves II-XII grossly intact. Motor strength 5/5 in all extremities. Sensory grossly intact. Cerebellar exam normal. Normal gait. Psych: Awake, alert, with orientation to person, place and time. Behavior, mood, and affect are within normal limits. 02:17 Abdomen/GI: Left-sided flank pain and left-sided abdominal pain to palpation without peritoneal signs, rebound or guarding. Vital signs normal., Vital Signs: 02:00 BP 142 / 88; Pulse 80; Resp 20; Temp 98.1; Pulse Ox 100% ; kj2 02:11 BP 129 / 90; Pulse 90; Resp 18; Temp 98.8; Pulse Ox 96% ; Pain 6/10; cp4 03:15 BP 134 / 86; Pulse 80; Resp 16; Pulse Ox 100% on R/A; kj2 04:17 BP 130 / 92; Pulse 82; Resp 18; Temp 98; Pulse Ox 100% on R/A; kj2 02:11 Pain Scale: Adult cp4 MDM: 02:10 Patient medically screened. sp3 02:18 Data reviewed: vital signs, nurses notes, lab test result(s), radiologic studies. ED sp3 course: 48-year-old male with left-sided abdominal pain. Differential diagnosis includes ureteral lithiasis/kidney stone spectrum, UTI/pyelonephritis spectrum, musculoskeletal pain, colitis, other GI pathology, functional abdominal pain, among others. Workup will include laboratory values, UA and CT abdomen pelvis kidney stone protocol. Ketorolac IV for pain control. Disposition pending workup patient course.. 04:07 ED course: Workup negative we will safely discharge him home at this time.. sp3 04/15 02:10 Order name: CBC with Diff; Complete Time: 04:05 sp3 04/15 02:10 Order name: CMP; Complete Time: 04:05 sp3 04/15 02:10 Order name: Lipase; Complete Time: 04:05 sp3 04/15 02:10 Order name: Urinalysis w/ reflexes; Complete Time: 04:05 sp3 04/15 02:10 Order name: CT Abd/Pelvis - Without Contrast sp3 04/15 02:10 Order name: IV Saline Lock; Complete Time: 03:14 sp3 04/15 02:10 Order name: Labs collected and sent; Complete Time: 03:14 sp3 Administered Medications: 03:14 Drug: TORadol - Ketorolac IVP 15 mg IVP once Route: IVP; Site: right antecubital; cp4 04:21 Follow up: Response: No adverse reaction; Pain is decreased kj2 Disposition Summary: 04/15/24 04:07 Discharge Ordered Notes: Location: Home sp3 Condition: Stable sp3 Diagnosis - Abdominal pain sp3 Followup: sp3 - With: Private Physician - When: Upon discharge from the Emergency Department - Reason: Continuance of care Discharge Instructions: - Discharge Summary Sheet sp3 - Abdominal Pain, Adult sp3 Forms: - Medication Reconciliation Form sp3 - Antibiotic Education sp3 - Prescription Opioid Use sp3 - Patient Portal Instructions sp3 - Leadership Thank You Letter sp3 Signatures: Dispatcher [employer] EDMS Krista Goodrich MD MD sp3 Xochilt Garza cp4 Sujey Delgado RN kj2 Corrections: (The following items were deleted from the chart) 02:11 02:11 Abdomen Pelvis Wo Con+CT.RAD.BRZ ordered. EDMS EDMS
--- NOTE | 2024-04-15 04:11 | RAD REPORT ---
CT ABDOMEN PELVIS WITHOUT IV CONTRAST CLINICAL INDICATION: Flank pain COMPARISON: None TECHNIQUE: CT images of the abdomen and pelvis obtained without contrast. Multiplanar reformats were provided. Dose-optimization techniques such as automated exposure control, iterative reconstruction, and mA and/or kV adjustment for patient size was utilized for this examination. FINDINGS: LOWER CHEST: Mild dependent changes at the bilateral lung bases without pleural or pericardial effusi on. LIVER: Diffuse fatty infiltration of the liver without focal lesion. BILIARY: Status post cholecystectomy with surgical clips at gallbladder fossa. No intra- or extrahepa tic biliary ductal dilatation. PANCREAS: Unremarkable. SPLEEN: Unremarkable. ADRENALS: Unremarkable. KIDNEYS/URETERS: No nephrolithiasis. No hydroureteronephrosis.. BOWEL/STOMACH: Unremarkable. APPENDIX: Normal. MESENTERY/PERITONEUM: Unremarkable. RETROPERITONEUM: No adenopathy. URINARY BLADDER: Unremarkable. REPRODUCTIVE: Unremarkable. VASCULAR: Unremarkable. ABDOMINAL/PELVIC WALL: Unremarkable. BONES: No acute findings. No compression deformity, nor osteolytic or sclerotic lesion. IMPRESSION: 1. No acute inflammatory process in the abdomen and pelvis. 2. Hepatic steatosis. Electronically signed by: Lis Juarez MD 04/15/2024 03:09 AM T Due to temporary technical issues with the PACS/EVERYWARE reporting system, reports are being mason d by the in-house radiologist without review as a courtesy to ensure prompt reporting the interpreting radiologist is fully responsible for the content of the report. Transcribed Date/Time: 04/15/2024 4:10 AM
[2024-04-15 19:11] VITALS: O2SAT 100
[2024-04-15 19:13] VITALS: BP 130/92; TEMP 98
== END 2024-04-15 04:22 | disposition home or self-care (01) ==
LOC: ER 01:51
DX: R10.32 Left lower quadrant pain (principal)
CPT/HCPCS: 36415; 74176; 80053; 81001; 83690; 85025; 96374; 99284

== ENCOUNTER 2025-02-26 19:32 | Emergency (ER) | payer OTHER ==
--- OUTSIDE RECORDS SUMMARY | 2025-02-26 19:51 | XMS REPORT | Continuity of Care Document ---
Author Name Unknown Address [address] [facility] [address] [facility] [facility] [address] [place] [address] Organization [facility] [place] Address [address] [facility] [facility] 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 Role Phone [facility] Primary Car e Physician Doctor Unassigned, [place] Attending Clinician U navailDELROY Ivy Attending Clinician Unavailable Delroy Tafoya MD Attending Clinician Nurse, Bakari Endo/Diab Attending Clinician Unavail able Doctor Unassigned, [place] Attending Clinician U navailable Lab, Ang - Db Attending Clinician Unavailable Payers Payer Name Policy Type Policy Number Effective Date Expirati on Date Source Problems Condition Name Condition Details Condition Category Status Onset Date Resolution Date Last Treatment Date Treating Clinician Comments Source 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 10-23 00:00: 00 [facility] Refraction error Refraction error Disease Active 10-23 00:00: 00 [facility] Allergies, Adverse Reactions, Alerts Allergy Name Allergy Type Status Severity Reaction(s) Onset Date Inactive Date Treating Clinician Comments Source NO KNOWN ALLERGIE S Drug Class Active [facility] Social History Social Habit Start Date Stop Date Quantity Comments Source History of tobacco use Cigarette Smoker [facility] Gender identity [facility] Sexual [facility] Alcoholic beverage intake 2023-03-18 00:00:00 2023-03-18 00:00:00 Ex-drinker (finding) [facility] Tobacco use and exposure 2023-03-18 00:00:00 2023-03-18 00:00:00 Smokeless tobacco non-user [facility] Alcohol intake 2023-03-18 00:00:00 2023-03-18 00:00:00 Ex-drinker (finding) [facility] History of Social function 2023-03-18 00:00:00 2023-03-18 00:00:00 [facility] Tobacco Comment 2023-03-18 00:00:00 2023-03-18 00:00:00 Previously social, not current [facility] Alcohol Comment 2023-03-18 00:00:00 2023-03-18 00:00:00 previously social, not current [facility] Sex assigned at 1975 00:00:00 1975 00:00:00 [facility] Smoking Status Start Date Stop Date Source Ex-smoker 2023-03-18 00:00:00 2023-03-18 00:00[facility] Medications Ordered Medication Name Filled Medication Name Start Date Stop Date Current Medication? Ordering Clinician Indication Dosage Frequency Signature (SIG) Comments Components Source testosteron e cypionate 200 mg/mL injection 08-05 00:00: 00 Yes [id number] 200mg 1 mL by Intramuscu lar route every 2 (two) weeks. [facility] Syringe with Needle, Safety 1 mL 23 gauge x 1" Syrg 08-05 00:00: 00 Yes [id number] Use as directed [facility] testosteron e 20.25 mg/1.25 gram (1.62 %) gel pump 04-09 00:00: 00 08-05 00:00 :00 No [id number] 20.25mg Apply 1 Pump to area(s) in the morning. [facility] testosteron e 20.25 mg/1.25 gram (1.62 %) gel pump 03-28 00:00: 04-09 00:00 :00 No [id number] 20.25mg Apply 1 Pump to area(s) in the morning. [facility] testosteron e 20.25 mg/1.25 gram (1.62 %) gel pump 03-24 00:00: 00 Yes [id number] 20.25mg Apply 1 Pump to area(s) in the morning. [facility] Vital Signs Vital Name Observation Time Observation Value Comments S ource Systolic blood pressure 2023-08-05 16:36:00 115 mm[Hg] [facility] Diastolic blood pressure 2023-08-05 16:36:00 79 mm[Hg] [facility] Heart rate 2023-08-05 16:36:00 64 /min [facility] Body height 2023-08-05 16:36:00 165.1 cm [facility] Body weight 2023-08-05 16:36:00 94.575 kg [facility] BMI 2023-08-05 16:36:00 34.70 kg/m2 [facility] Systolic blood pressure 2023-03-18 13:39:00 122 mm[Hg] [facility] Diastolic blood pressure 2023-03-18 13:39:00 86 mm[Hg] [facility] Heart rate 2023-03-18 13:39:00 71 /min [facility] Body height 2023-03-18 13:39:00 165.1 cm [facility] Body weight 2023-03-18 13:39:00 91.536 kg [facility] BMI 2023-03-18 13:39:00 33.58 kg/m2 [facility] Oxygen saturation in Arterial blood by Pulse oximetry 2023-03-18 13:39:00 93 /min [facility] Procedures Procedure Date / Time Performed Performing Clinician Source REFERRAL- REQUEST/RESPONSE 2023-11-20 20:40:57 Doctor Unassigned, [place] [facility] MEDICATION CORRESPONDENCE 2023-03-31 05:01:00 Do ctor Unassigned, [place] [facility] THYROID STIMULATING HORMONE 2023-03-18 14:55:00 Delroy Tafoya [facility] Encounters Start Date/Time End Date/Time Encounter Type Admission Type Attending Clinicians Care Facility Care Department Encounter ID Source 2023-11-20 00:00:00 2024-08-28 07:49:23 Orders Only Doctor Unassigned, [place] Doctor Unassigned, [place] [facility] [id number] 350.1.13.10 [id number] [id number] [facility] 2024-01-27 16:00:00 2024-01-27 16:00:00 Outpatient R [facility] [id number] [facility] 2024-01-20 08:30:00 2024-01-20 08:30:00 Outpatient R [facility] [id number] [facility] 2023-12-02 00:00:00 2023-12-02 15:50:25 Telephone [facility] [place] [id number] 350.1.13.10 4.2.7.2.686 [id number] [facility] 2023-10-16 09:00:00 2023-10-16 09:00:00 Outpatient R [facility] [id number] [facility] 2023-08-28 14:00:00 2023-08-28 17:08:42 Outpatient R [facility] [id number] [facility] 2023-08-28 14:00:00 2023-08-28 14:30:00 Nurse Visit Nurse, [facility] [id number] 350.1.13.10 [id number] [id number] [facility] 2023-08-05 11:00:00 2023-08-05 11:50:12 Outpatient R [facility] [id number] [facility] 2023-08-05 11:00:00 2023-08-05 11:50:12 Office Visit [facility] NEENA?[facility] [id number] 350.1.13.10 4.2.7.2.686 [id number] [facility] 2023-04-08 00:00:00 2023-04-08 00:00:00 Telephone [facility] NEENA?[facility] [id number] 350.1.13.10 4.2.7.2.686 [id number] [facility] 2023-04-07 00:00:00 2023-04-07 00:00:00 Telephone [facility] NEENA?[facility] [id number] 350.1.13.10 4.2.7.2.686 [id number] [facility] 2023-03-31 00:00:00 2023-03-31 00:00:00 Orders Only Doctor Unassigned, [place] [facility] [id number] 350.1.13.10 4.2.7.2.686 [id number] [facility] 2023-03-27 00:00:00 2023-03-27 00:00:00 Telephone [facility] NEENA?[facility] [id number] 350.1.13.10 4.2.7.2.686 [id number] [facility] 2023-03-24 00:00:00 2023-03-24 00:00:00 Telephone [facility] NEENA?[facility] 1.2840.114 350.1.13.10 4.2.7.2.686 [id number] [facility] 2023-03-18 11:30:00 2023-03-18 11:30:00 Corporate Account Executive Visit Lab, Ang - Db [facility] [id number] 350.1.13.10 4.2.7.2.686 [id number] [facility] 2023-03-18 08:30:00 2023-03-18 09:30:52 Outpatient R [facility] [id number] [facility] 2023-03-18 08:30:00 2023-03-18 09:30:52 Office Visit [facility] [place] [id number] 350.1.13.10 4.2.7.2.686 [id number] [facility] Results Test Description Test Time Test Comments Results Resul t Comments Source REFERRAL- REQUEST/RESPONSE 2023-11-20 20:40:57 Ordered by an unspecified provider. [facility] Notes Date/Time Note Provider Source 2023-12-02 15:48:07 R[place] form from [place] and [facility] note faxed to [phone] Heladio Farias RN [facility] 2023-03-25 11:36:43 Formatting of this n ote might be different from the original. Patient called and informed of providers message. Patient verbalized understanding and denies any further questions. Deborah Smiley RN [facility] 2023-03-25 11:27:13 Formatting of this n ote might be different from the original. Pt returning missed call over lab results. Please advise. Gabino Dennis [facility] 2023-03-25 10:46:09 Formatting of this n ote might be different from the original. Patient called. No answer. Left voicemail. T [facility] 2023-03-24 19:05:22 Formatting of this n ote might be different from the original. Please update blood work result with patient. His testosterone level was borderline low, will start androgel 1 pump daily as we discussed during visit RX was sent to his pharmacy Other hormone test was normal T [facility] 2023-03-18 11:30:00 Formatting of this n ote is different from the original. Images from the original note were not included. Venipuncture collection performed by clean technique on the left anticubitus. Total of 1 attempts were made. Slight pressure and a bandage/dressing were applied to the site(s). The patient experienced no complications. The following specimens were processed according to instructions and sent to [facility] laboratories per lab order on 03/18/2023 : LT BLUE SST 4 RED LAV 1 PPT DK GREEN (LiHep) DK GREEN (SodH) CERON DK BLUE (K2) DK BLUE (S) ACD Blood Culture NIPT/NTD T [facility]
[2025-02-26] MEDS ORDERED: ASPIRIN 81 MG CHEWABLE TABLET ONE (19:58)
[2025-02-26 20:06] LABS: Absolute Lymphocytes (CBC) 2.2 K/uL (0.7-4.9); Hematocrit 44.8 % (39.6-49.0); Hemoglobin 15.5 g/dL (13.6-17.9); MCH 29.7 pg (27.0-35.0); MCHC 34.5 g/dL (32.0-36.0); MCV 86.1 fL (80-100); MPV 7.6 fL (7.6-11.3); Nucleated RBC Absolute Count 0.0 (0-0); Nucleated Red Blood Cells % 0.1 % (0-0); RBC Red Blood Cell Count 5.21 M/uL (4.33-5.43); White Blood Count 7.60 thou/uL (4.3-10.9)
[2025-02-26 20:10] LABS: PT Prothrombin Time 11.7 SECONDS (10-13.0); Protime INR 1.04
[2025-02-26 20:14] LABS: Potassium 3.9 mEq/L (3.5-5.1)
[2025-02-26] MEDS ORDERED: FAMOTIDINE 20 MG/2 ML VIAL IV ONE (20:28)
[2025-02-26] MEDS ORDERED: MAGNES/ALUMIN/SIMET 30ML UCUP ONE (20:28)
[2025-02-26] MEDS ORDERED: LIDOCAINE VISCOUS 2% 10ML ORAL SOLN ONE (20:29)
[2025-02-26 20:45] LABS: ALT/SGPT 57 U/L (16-61); AST/SGOT 30 U/L (15-37); Alkaline Phosphatase 96 U/L (45-117); BUN Blood Urea Nitrogen 19 mg/dL (7-18); Glucose Level 153 mg/dL (74-106)
[2025-02-26 20:46] LABS: Albumin 3.9 g/dL (3.4-5.0); Albumin/Globulin Ratio 1.2 (1.1-1.8); Globulin 3.2 g/dL (2.3-3.5); NT PRO-BNP 72 pg/mL (<125); Troponin High Sensitivity 9.1 (<58.9)
[2025-02-26 20:47] LABS: Anion Gap 6.3 mEq/L (5.0-15.0); Magnesium 2.1
[2025-02-26 20:53] LABS: Bilirubin Indirect, Calculated ND mg/dL (0.2-0.8)
--- NOTE | 2025-02-26 21:11 | RAD REPORT ---
Procedure: Chest Single View HISTORY: Chest pain COMPARISON: January 2025 FINDINGS: The lungs appear clear of acute infiltrate. No significant pleural effusion noted. The heart is normal size. IMPRESSION: No acute abnormality is displayed.
--- NOTE | 2025-02-26 22:55 | EDPHYS ---
Physician Documentation [facility] Name: Delfino Keller Age: 49 yrs Sex: Male : 1975 Arrival Date: 02/26/2025 Time: 19:32 Bed 4 Private MD: ED Physician Theo Wiseman HPI: 02/26 22:59 This 49 yrs old Male presents to ER via Ambulatory with complaints of Chest ms3 Pain, Chest Pressure. 22:59 49-year-old male with past medical history of GERD, peptic ulcer disease presents to [facility] the emergency department for chest pain that began at 6:20 PM while watching TV. Patient states he felt like something exploded in his chest and was bad pain for approximately 15 minutes. Patient states that the worst the pain was an 8/10. Patient states on arrival to the emergency department his pain is a 4/10 and described as a pressure sensation. Patient states pain is located in the central chest and does not radiate. Patient endorses nausea. Patient denies vomiting, shortness of breath, sweating. Patient denies any alleviating or inciting factors.. Historical: - Allergies: 19:53 No Known Allergies; al5 - PMHx: 19:53 Gastroesophageal reflux disease; al5 - PSHx: 19:53 None; al5 - Immunization history:: Adult Immunizations up to date. - Infectious Disease History:: Denies. - Social history:: Smoking status: Patient denies any tobacco usage or history of. ROS: 22:59 Constitutional: Negative for fever, and chills. Respiratory: Negative for shortness of ms3 breath, cough, wheezing, and pleuritic chest pain, 22:59 MS/Extremity: Negative for injury and deformity, Skin: Negative for injury, rash, and discoloration, 22:59 Cardiovascular: Positive for chest pain, 22:59 Abdomen/GI: Positive for nausea, Exam: 22:59 Constitutional: This is a well developed, well nourished patient who is awake, alert, ms3 and in no acute distress. Cardiovascular: Regular rate and rhythm with a normal S1 and S2. No gallops, murmurs, or rubs. Normal PMI, no JVD. No pulse deficits. Respiratory: Lungs have equal breath sounds bilaterally, clear to auscultation and percussion. No rales, rhonchi or wheezes noted. No increased work of breathing, no retractions or nasal flaring. Abdomen/GI: Soft, non-tender, with normal bowel sounds. No distension or tympany. No guarding or rebound. No evidence of tenderness throughout. Skin: Warm, dry with normal turgor. Normal color with no rashes, no lesions, and no evidence of cellulitis. 22:59 ECG was reviewed by the Attending Physician. ms3 Vital Signs: 19:50 BP 164 / 100; Pulse 84; Resp 18; Temp 97.2(TE); Pulse Ox 100% on R/A; Weight 95.25 kg; al5 Height 5 ft. 5 in. ; Pain 5/10; 20:00 BP 133 / 90; Pulse 76; Resp 18; Pulse Ox 96% on R/A; al5 20:30 BP 121 / 82; Pulse 79; Resp 16; Pulse Ox 96% on R/A; al5 21:00 BP 135 / 89; Pulse 80; Resp 19; Pulse Ox 96% on R/A; al5 21:30 BP 136 / 87; Pulse 79; Resp 16; Pulse Ox 97% on R/A; al5 22:00 BP 140 / 91; Pulse 72; Resp 17; Pulse Ox 96% on R/A; al5 22:30 BP 135 / 84; Pulse 76; Resp 16; Pulse Ox 97% on R/A; al5 19:50 Body Mass Index 34.95 (95.25 kg, 165.1 cm) al5 19:50 Pain Scale: Adult al5 MDM: 19:39 Medical Screening Exam initiated cp 22:59 Differential diagnosis: abnormal EKG, acute myocardial infarction, anxiety, chest wall ms3 pain, gastroesophageal reflux disease (GERD). HEART Score: History: Slightly Suspicious (0), ECG: Normal (0), Age: > 45 and < 65 years (1), Risk Factors: No Risk Factors Known (0), Troponin: < or = 1 x Normal Limit (0), Total Score = 1. The patient was given aspirin in the Emergency Department. Data reviewed: vital signs, nurses notes, lab test result(s), EKG, radiologic studies, and as a result, I will discharge patient. I considered the following discharge prescriptions or medication management in the emergency department Medications were administered in the Emergency Department. See MAR. Independent interpretation of the following test(s) in the Emergency Department EKG: See my EKG interpretation above. Counseling: I had a detailed discussion with the patient and/or guardian regarding the historical points, exam findings, and any diagnostic results supporting the discharge/admit diagnosis, lab results, radiology results, the need for outpatient follow up, to return to the emergency department if symptoms worsen or persist or if there are any questions or concerns that arise at home. Special discussion: Based on the patient's history, exam, and Dx evaluation, there is no indication for emergent intervention or inpatient Tx. It is understood by the patient/guardian that if the Sx's persist or worsen they need to return immediately for re-evaluation. ED course: On reevaluation patient states his symptoms were improved, alert and oriented x 4, in no apparent distress, nontoxic-appearing, speaking full sentences, ambulatory in the emergency department. Patient to follow-up with Dr. Rodriguez in 2 to 3 days. Patient understands and agrees with plan. All questions were answered. Return precautions discussed include worsening symptoms, or any other concerns.. 02/26 19:46 Order name: Basic Metabolic Panel; Complete Time: 21:22 ms3 02/26 19:46 Order name: CBC with Diff; Complete Time: 21:22 ms3 02/26 19:46 Order name: LFT's; Complete Time: 21:22 ms3 02/26 19:46 Order name: Magnesium; Complete Time: 21:22 ms3 02/26 19:46 Order name: NT PRO-BNP; Complete Time: 21:22 ms3 02/26 19:46 Order name: PT-INR; Complete Time: 21:22 ms3 02/26 19:46 Order name: Troponin HS; Complete Time: 21:22 ms3 02/26 21:23 Order name: Troponin High Sensitivity; Complete Time: 22:52 ms3 02/26 19:46 Order name: XRAY Chest (1 view); Complete Time: 21:22 ms3 02/26 19:46 Order name: Cardiac monitoring; Complete Time: 20:00 ms3 02/26 19:46 Order name: EKG - Nurse/Tech; Complete Time: 19:47 ms3 02/26 19:46 Order name: IV Saline Lock; Complete Time: 20:00 ms3 02/26 19:46 Order name: Labs collected and sent; Complete Time: 20:00 ms3 02/26 19:46 Order name: O2 Per Protocol; Complete Time: 20:00 ms3 02/26 19:46 Order name: O2 Sat Monitoring; Complete Time: 20:00 ms3 EC:59 Rate is 77 beats/min. Rhythm is regular. QRS [place] is Normal. AR interval is normal. QRS ms3 interval is normal. Clinical impression: Normal ECG. Interpreted by me. Reviewed by me. Administered Medications: 20:01 Drug: Aspirin PO Chewable Tablet 324 mg PO once; 81 mg tablets x 4 Route: PO; mf3 23:02 Follow up: Response: No adverse reaction al5 20:33 Drug: Famotidine IVP 20 mg IVP once; dilute with 10 mL 0.9% NaCl; give over 2 minutes al5 Route: IVP; Site: right antecubital; 21:49 Follow up: Response: No adverse reaction; Pain is decreased al5 20:33 Drug: GI Cocktail without - (Maalox PO 30 ml, Lidocaine Mucous Membrane 2 % 15 al5 ml) PO once Route: PO; 21:49 Follow up: Response: No adverse reaction; Pain is decreased al5 Disposition Summary: 02/26/25 22:55 Discharge Ordered Notes: Location: Home ms3 Condition: Stable ms3 Diagnosis - Chest pain, unspecified ms3 - Essential (primary) hypertension ms3 Followup: ms3 - With: Klaus Rodriguez MD - When: 2 - 3 days - Reason: Recheck today's complaints Discharge Instructions: - Discharge Summary Sheet ms3 - Nonspecific Chest Pain, Adult ms3 - Hypertension, Adult ms3 - DASH Eating Plan ms3 Forms: - Medication Reconciliation Form ms3 - Antibiotic Education ms3 - Prescription Opioid Use ms3 - Patient Portal Instructions ms3 - Leadership Thank You Letter ms3 Signatures: Dispatcher [employer] EDMS Tung Quiñones PA-C PA-C cp Sims, Marcus, DO DO ms3 Emmanuelle Ann RN RN al5 Jaine Green RN RN 3
--- NOTE | 2025-02-26 22:55 | ER ---
Nurse's Notes [facility] Name: Delfino Keller Age: 49 yrs Sex: Male : 1975 Arrival Date: 02/26/2025 Time: 19:32 Bed 4 Private MD: Diagnosis: Chest pain, unspecified;Essential (primary) hypertension Presentation: 02/26 19:50 Chief complaint: Patient states: c/o chest pain starting at 1820 this evening, states al5 it is midsternal rating 5/10. Coronavirus screen: At this time, the client does not indicate any symptoms associated with coronavirus-19. Ebola Screen: No symptoms or risks identified at this time. Initial Sepsis Screen: Does the patient meet any 2 criteria? No. Patient's initial sepsis screen is negative. Does the patient have a suspected source of infection? No. Patient's initial sepsis screen is negative. Risk Assessment: Do you want to hurt yourself or someone else? Patient reports no desire to harm self or others. Onset of symptoms was February 26, 2025. 19:50 Method Of Arrival: Ambulatory al5 19:50 Acuity: ROCIO 2 al5 Triage Assessment: 19:53 General: Appears in no apparent distress. comfortable, well groomed, well developed, al5 Behavior is calm, cooperative. Pain: Complains of pain in mid-sternal area Pain currently is 5 out of 10 on a pain scale. Quality of pain is described as pressure. EENT: No signs and/or symptoms were reported regarding the EENT system. Neuro: Level of Consciousness is awake, alert, obeys commands, Oriented to person, place, time, situation. Cardiovascular: Heart tones S1 S2 present Capillary refill < 3 seconds Patient's skin is warm and dry. Rhythm is sinus rhythm. Respiratory: Airway is patent Respiratory effort is even, unlabored, Respiratory pattern is regular, symmetrical, Breath sounds are clear bilaterally. GI: Abdomen is non-distended, obese, Bowel sounds present X 4 quads. : No signs and/or symptoms were reported regarding the genitourinary system. Derm: Skin is intact, is healthy with good turgor, Skin is pink, warm \T\ dry. normal. Musculoskeletal: Circulation, motion, and sensation intact. Range of motion: intact in all extremities. Historical: - Allergies: 19:53 No Known Allergies; al5 - PMHx: 19:53 Gastroesophageal reflux disease; al5 - PSHx: 19:53 None; al5 - Immunization history:: Adult Immunizations up to date. - Infectious Disease History:: Denies. - Social history:: Smoking status: Patient denies any tobacco usage or history of. Screenin:56 [facility] ED Fall Risk Assessment (Adult) History of falling in the last 3 months, al5 including since admission No falls in past 3 months (0 pts) Confusion or Disorientation No (0 pts) Intoxicated or Sedated No (0 pts) Impaired Gait No (0 pts) Mobility Assist Device Used No (0 pt) Altered Elimination No (0 pt) Score/Fall Risk Level 0 - 2 = Low Risk Oriented to surroundings, Maintained a safe environment, Hourly rounding (assess needs \T\ fall precautionary measures) done. Abuse screen: Denies threats or abuse. Denies injuries from another. Nutritional screening: No deficits noted. Tuberculosis screening: No symptoms or risk factors identified. Assessment: 19:56 Reassessment: see triage assessment. al5 19:59 Pain: Pain does not radiate. Pain began 1 hour ago. al5 20:34 Reassessment: Patient appears in no apparent distress at this time. No changes from al5 previously documented assessment. Patient and/or family updated on plan of care and expected duration. Pain level reassessed. Patient is alert, oriented x 3, equal unlabored respirations, skin warm/dry/pink. 21:49 Reassessment: Patient appears in no apparent distress at this time. Patient and/or al5 family updated on plan of care and expected duration. Pain level reassessed. Patient is alert, oriented x 3, equal unlabored respirations, skin warm/dry/pink. Patient states feeling better. Patient states symptoms have improved. 22:56 Reassessment: Patient appears in no apparent distress at this time. No changes from al5 previously documented assessment. Patient and/or family updated on plan of care and expected duration. Pain level reassessed. Patient is alert, oriented x 3, equal unlabored respirations, skin warm/dry/pink. Vital Signs: 19:50 BP 164 / 100; Pulse 84; Resp 18; Temp 97.2(TE); Pulse Ox 100% on R/A; Weight 95.25 kg; al5 Height 5 ft. 5 in. ; Pain 5/10; 20:00 BP 133 / 90; Pulse 76; Resp 18; Pulse Ox 96% on R/A; al5 20:30 BP 121 / 82; Pulse 79; Resp 16; Pulse Ox 96% on R/A; al5 21:00 BP 135 / 89; Pulse 80; Resp 19; Pulse Ox 96% on R/A; al5 21:30 BP 136 / 87; Pulse 79; Resp 16; Pulse Ox 97% on R/A; al5 22:00 BP 140 / 91; Pulse 72; Resp 17; Pulse Ox 96% on R/A; al5 22:30 BP 135 / 84; Pulse 76; Resp 16; Pulse Ox 97% on R/A; al5 19:50 Body Mass Index 34.95 (95.25 kg, 165.1 cm) al5 19:50 Pain Scale: Adult al5 ED Course: 19:34 Patient arrived in ED. im 19:34 Tung Quiñones PA is PHCP. cp 19:34 Theo Wiseman DO is Attending Physician. cp 19:50 Emmanuelle Ann RN is Primary Nurse. al5 19:53 Triage completed. al5 19:53 Arm band placed on right wrist. Patient placed in the treatment room, in view of staff al5 members, on cardiac nurse, on pulse oximetry. 19:56 Patient has correct armband on for positive identification. Bed in low position. Call al5 light in reach. Side rails up X 1. Provided Education on: plan of care. Client placed on continuous cardiac and pulse oximetry monitoring. NIBP monitoring applied. 19:56 No provider procedures requiring assistance completed. Inserted saline lock: 20 gauge al5 in right antecubital area, using aseptic technique. ,using aseptic technique. done by HARINDER Barnes Blood collected. Flushed with 10 mL NS. Patient maintains SpO2 saturation greater than 95% on room air. 20:29 XRAY Chest (1 view) In Process Unspecified. EDMS 22:54 Klaus Rodriguez MD is Referral Physician. ms3 23:03 IV discontinued, intact, bleeding controlled, No redness/swelling at site. Pressure al5 dressing applied. Administered Medications: 20:01 Drug: Aspirin PO Chewable Tablet 324 mg PO once; 81 mg tablets x 4 Route: PO; mf3 23:02 Follow up: Response: No adverse reaction al5 20:33 Drug: Famotidine IVP 20 mg IVP once; dilute with 10 mL 0.9% NaCl; give over 2 minutes al5 Route: IVP; Site: right antecubital; 21:49 Follow up: Response: No adverse reaction; Pain is decreased al5 20:33 Drug: GI Cocktail without - (Maalox PO 30 ml, Lidocaine Mucous Membrane 2 % 15 al5 ml) PO once Route: PO; 21:49 Follow up: Response: No adverse reaction; Pain is decreased al5 Medication: 19:56 VIS not applicable for this client. al5 Outcome: 22:55 Discharge ordered by MD. ms3 23:03 Discharged to home ambulatory, al5 23:03 Condition: good 23:03 Discharge instructions given to patient, Instructed on discharge instructions, follow up and referral plans. Demonstrated understanding of instructions, follow-up care, 23:04 Patient left the ED. al5 Signatures: Dispatcher [employer] EDMS Tung Quiñones PA-C PA-C cp Sims, Marcus, DO DO ms3 Meagan Cuevas Amanda, RN RN al5 Janie Green RN RN mf3
[2025-02-27 07:02] VITALS: TEMP 97.2
[2025-02-27 07:12] VITALS: BP 135/84; O2SAT 97
== END 2025-02-26 23:04 | disposition home or self-care (01) ==
LOC: ER 19:32
DX: R07.89 Other chest pain (principal); I10 Essential (primary) hypertension; K21.9 Gastro-esophageal reflux disease without esophagitis
CPT/HCPCS: 36415; 71045; 80048; 80076; 83735; 83880; 84484; 85025; 85610; 93005; 96374; 99284